=== PATIENT | male | born 1965 | race Caucasian/White ===

== ENCOUNTER 2018-04-22 17:18 | Emergency (ER) | payer OTHER ==
[~2018-04-22] VITALS: Ht 180.3 cm; Wt 93.3 kg
[2018-04-22 18:25] LABS: HEMATOCRIT 42.2 % (38.0-50.0); HEMOGLOBIN 14.9 G/DL (12.5-16.6); MCH 30.5 PG (29.0-34.0); MCHC 35.3 G/DL (30.0-36.0); MCV 86.3 FL (86-99); PLATELET COUNT 198 K/uL (156-360); RBC DIS.WIDTH-CV 12.2 % (11.8-14.6); RBC DIS.WIDTH-SD 38.7 % (39-53); RED BLOOD COUNT 4.89 M/uL (4.00-5.50); WHITE BLOOD COUNT 9.7 K/uL (4.1-10.2)
[2018-04-22 18:34] LABS: ALBUMIN 4.3 g/dL (3.2-4.8)
[2018-04-22 18:35] LABS: CHLORIDE 107 mEq/L (99-109); POTASSIUM 4.1 mEq/L (3.7-5.4); SODIUM 141 mEq/L (136-147)
[2018-04-22 18:36] LABS: APPEARANCE CLEAR ((CLEAR)); BILIRUBIN NEGATIVE; BLOOD NEGATIVE; COLOR YELLOW ((YELLOW)); GLUCOSE (STRIP) NEGATIVE; KETONES NEGATIVE; LEUKOCYTES NEGATIVE; NITRITE NEGATIVE; PROTEIN (STRIP) NEGATIVE; SPECIFIC GRAVITY 1.025 (1.000-1.030); UCUL ADDED? NO; UROBILINOGEN 0.2 MG/DL (0.2-1.0)
[2018-04-22 18:37] LABS: GLUCOSE 94 mg/dL (70-99); TOTAL PROTEIN 6.7 g/dL (6.4-8.3)
[2018-04-22 18:39] LABS: TOTAL BILIRUBIN 0.4 mg/dL (0.0-1.0)
[2018-04-22 18:40] LABS: ALKALINE PHOSPHATASE 61 IU/L (3-129)
[2018-04-22 18:41] LABS: CREATININE 1.1 mg/dL (0.6-1.3); GFR ESTIMATE (CALCULATED) > 59 mL/min/ (58.99-99999)
[2018-04-22 18:42] LABS: AST (GOT) 13 IU/L (2-34); UREA NITROGEN (BUN) 17 mg/dL (9-23)
[2018-04-22 18:43] LABS: ALT (GPT) 16 IU/L (3-49)
[2018-04-22 18:44] LABS: LIPASE 15 U/L (1.0-51.0)
[2018-04-22 19:52] VITALS: BP 117/95
== END 2018-04-22 19:53 | disposition home or self-care (01) ==
LOC: EME 17:18
PROVIDERS: Nurse Practitioner Family
DX: R10.30 Lower abdominal pain, unspecified (principal); N50.819 Testicular pain, unspecified; Z71.6 Tobacco abuse counseling; F17.200 Nicotine dependence, unspecified, uncomplicated; K21.9 Gastro-esophageal reflux disease without esophagitis; Z90.49 Acquired absence of other specified parts of digestive tract
CPT/HCPCS: 74018; 80053; 81003; 83690; 85027; 99281; 99283; J0696